=== PATIENT | female | born 1985 | race American Indian/Alaskan Native ===

== ENCOUNTER 2017-02-21 16:32 | Emergency (ER) | payer OTHER ==
[2017-02-21 16:44] VITALS: BP 131/77
[2017-02-21] MEDS ORDERED: ULTRAM PO ONE (18:28)
[2017-02-21] MEDS ORDERED: FLEXERIL PO ONE (18:28)
[2017-02-21] MEDS ORDERED: TORADOL IM ONE (18:29)
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
== END 2017-02-21 18:54 | disposition home or self-care (01) ==
LOC: ED 16:32
DX: S16.1XXA Strain of muscle, fascia and tendon at neck level, initial encounter (principal); M54.9 Dorsalgia, unspecified; M25.519 Pain in unspecified shoulder; V49.49XA Driver injured in collision with other motor vehicles in traffic accident, initial encounter; Y93.89 Activity, other specified; Y92.89 Other specified places as the place of occurrence of the external cause; Y99.8 Other external cause status
CPT/HCPCS: 96372; 99282; J1885